=== PATIENT | female | born 1970 | race African-American/Black ===

== ENCOUNTER 2021-01-03 13:16 | Emergency (ER) | payer SELFPAY ==
--- NOTE | ~2021-01-03 | CT_ITS ---
EXAMINATION: CT lumbar spine wo con DATE: 01/03/2021 15:28 INDICATION: Low back pain post fall TECHNIQUE: Computed tomography (CT) of the lumbar spine was performed without intravenous contrast. A utomated exposure control and iterative reconstruction technique were employed. The dose-length produ ct was 1215.95 mGy-cm. COMPARISON: None FINDINGS: There is prominent anterior angulation at this fibrous 6 which appears chronic and either development al or sequela of old trauma. There are however subtle linear lucent nondisplaced fracture lines invol ving both the S5 S6 sacral segments. Bone alignment is otherwise normal. Vertebral body heights are n ormal. No other fractures identified. Disc heights are normal. Mild cystic change along the anterior superior endplate of L5. Mild disc bulge at L3-L4 with minimal central canal stenosis and larger disc bulges at L2 4 L5 and L5-S1, lateral with superimposed right paracentral disc extrusion with disc ma terial extending a few millimeter caudal to the level of the superior endplate of S1. Mild central ca nal stenosis at both L4-L5 and L5-S1. Multilevel mild lumbar facet osteoarthritis. Mild neural forami nal stenosis, mild bilaterally at L4-L5 and moderate bilaterally at L5-S1. Asymmetric left-sided pred ominant bilateral sacroiliitis characterized by joint space narrowing, multiple erosions and surround ing sclerosis. IMPRESSION: 1. Nondisplaced fractures at the S4 and S5 segments. 2. Minimal to mild lumbar spondylosis. 3. Asymmetric left-sided predominant bilateral sacroiliitis. Differential includes osteoarthritis, go ut, psoriatic and reactive arthritis. Differential also includes enteropathic arthritis related to Cr ohn's disease or ulcerative colitis, ankylosing spondylitis or rheumatoid arthritis although typicall y this would be more symmetric. Reviewed, dictated and finalized at location A. RMATICS PHYSICIAN LIAISON IMPRESSION: 1. Nondisplaced fractures at the S4 and S5 segments. 2. Minimal to mild lumbar spondylosis. 3. Asymmetric left-sided predominant bilateral sacroiliitis. Differential inclu jacques osteoarthritis, gout, psoriatic and reactive arthritis. Differential also i ncludes enteropathic arthritis related to Crohn's disease or ulcerative colitis , ankylosing spondylitis or rheumatoid arthritis although typically this would be more symmetric.
[2021-01-03 13:23] VITALS: PULSE 100; RESP 18; TEMP 35.8; O2SAT 99
[2021-01-03 15:00] VITALS: BP 220/110
--- NOTE | 2021-01-03 15:16 | ED.BACK ---
HPI - Back Pain/Injury General Chief Complaint: Back Pain/Injury Stated Complaint: fall/ back pain Time Seen by Provider: 01/03/21 14:58 Source: patient Mode of arrival: ambulatory Limitations: no limitations History of Present Illness HPI Narrative: This is a 50 year old female that presents to the ER for low back pain present over the last 2 days. Reports she slipped and fell down about 4 stairs. Denies hitting her head or loss consciousness. Reports since she has had low back pain. It makes it difficult for her to sit down. Denies fever, saddle anesthesia, or bowel/bladder incontinence. Related Data Allergies Allergy/AdvReac Type Severity Reaction Status Date / Time No Known Allergies Allergy Unknown Verified 01/03/21 15:08 Review of Systems Review of Systems: CONSTITUTIONAL: Denies fever MUSCULOSKELETAL: Reports back pain, joint pain, and myalgia. NEUROLOGIC: Denies numbness, or weakness. All systems reviewed & are unremarkable except as noted in HPI and below PMFSH Past Medical History Medical History (Updated 01/03/21 @ 17:12 by Lulu eMndez PA-C) No active medical problems Social History Social History (Updated 01/03/21 @ 15:18 by Lulu Mendez PA-C) Substance use: never Exam Narrative: GENERAL: Well-appearing, well-nourished, and in no acute distress. HEAD: Normocephalic, atraumatic. EYES: EOMI. CHEST: Clear to auscultation. No respiratory distress. No wheezes rales or rhonchi HEART: Regular rate and rhythm. No murmur heard. Normal peripheral pulses. BACK: No midline thoracic spine tenderness. Tender to palpation of lower lumbar spine EXTREMITIES: Normal range of motion. No edema. Strength equal in bilateral lower extremities (5/5). Normal DP pulses SKIN: Warm, dry, no rash. NEURO: No focal deficits. Alert and oriented x3. PSYCH: Normal mood and affect Course Vital Signs Vital signs: Vital Signs Temperature 96.4 F L 01/03/21 13:23 Pulse Rate 100 01/03/21 13:23 Respiratory Rate 18 01/03/21 13:23 Pulse Oximetry 99 01/03/21 13:23 Temperature 96.4 F L 01/03/21 13:23 Pulse Rate 100 01/03/21 13:23 Respiratory Rate 18 01/03/21 13:23 Blood Pressure 220/110 H 01/03/21 15:00 Pulse Oximetry 99 01/03/21 13:23 MDM - Back Pain/Injury MDM Narrative Medical decision making narrative: Patient presents to the emergency department for low back pain after a fall 2 days ago. Patient is neurologically intact. CT scan of the lumbar spine shows nondisplaced fractures at the S4 and S5 segments. She has been minimal to mild lumbar spondylosis. Shows asymmetric left-sided predominant bilateral sacroiliitis. Patient was updated on case findings. Instructed to have close follow-up with her primary doctor. Her blood pressure was also incidentally noted to be elevated today. She is asymptomatic with this. Instructed on the importance of continuing to monitor this at home and following up with her primary doctor. She is stable and felt appropriate for further outpatient evaluation. She was given warnings to return to the ER Imaging Data Radiologist's impression: ITS Impressions Lumbar Spine CT 01/03/21 15:34 IMPRESSION: 1. Nondisplaced fractures at the S4 and S5 segments. 2. Minimal to mild lumbar spondylosis. 3. Asymmetric left-sided predominant bilateral sacroiliitis. Differential includes osteoarthritis, gout, psoriatic and reactive arthritis. Differential also includes enteropathic arthritis related to Crohn's disease or ulcerative colitis, ankylosing spondylitis or rheumatoid arthritis although typically this would be more symmetric. Critical Care Time Critical Care Time Critical Care Time: No Discharge Plan Discharge Clinical Impression: Closed sacral fracture Qualifiers: Encounter type: initial encounter Zone of sacrum fracture: unspecified portion of sacrum Qualified Code(s): S32.10XA - Unspecified fracture of sacrum, initial encounter for closed
[2021-01-03] MEDS: ACETAMINOPHEN 500 MG TABLET 1000 MG PO (16:04)
[2021-01-03] MEDS: diazePAM INJ (*CRX) 10 MG/2 ML SYRINGE 5 MG IM (16:04)
[2021-01-03 17:05] VITALS: BP 200/100; PULSE 70; RESP 16; O2SAT 98
== END 2021-01-03 17:30 | disposition home or self-care (01) ==
PROVIDERS: Emergency Provider Emergency Medicine
DX: S32.19XA Other fracture of sacrum, initial encounter for closed fracture (principal); M47.812 Spondylosis without myelopathy or radiculopathy, cervical region; M46.1 Sacroiliitis, not elsewhere classified; W10.9XXA Fall (on) (from) unspecified stairs and steps, initial encounter
CPT/HCPCS: 72131; 96372; 99284; A9270; J3360